=== PATIENT | male | born 1990 | race Asian ===

== ENCOUNTER 2025-07-18 08:43 | Emergency (ER) | payer BC ==
[~2025-07-18] VITALS: Ht 177.8 cm; Wt 84.4 kg
[2025-07-18] MEDS ORDERED: ONDANSETRON HCL/PF 4 MG/2 ML VIAL ONE (09:12)
[2025-07-18] MEDS ORDERED: FAMOTIDINE/PF INJ 20 MG/2 ML VIAL IV ONE (09:12)
[2025-07-18] MEDS ORDERED: PANTOPRAZOLE 40 MG VIAL ONE (09:12)
[2025-07-18 09:14] LABS: PLATELET COUNT (AUTO) 237 K/uL (150-450); RED BLOOD CELL COUNT(AUTO) 6.15 MIL/uL (4.5-6.0); RED CELL DISTRIBUTION WIDTH 14.6 % (11.5-15.0); WHITE BLOOD COUNT (AUTO) 7.1 K/uL (4.3-11.0)
[2025-07-18] MEDS: FAMOTIDINE/PF INJ 20 MG/2 ML VIAL IV ONE (09:18)
[2025-07-18] MEDS: IV NS 0.9% 1,000 ML BAG IV ONE (09:18)
[2025-07-18] MEDS: PANTOPRAZOLE 40 MG VIAL IV ONE (09:19)
[2025-07-18] MEDS: ONDANSETRON HCL/PF - ER 4 MG/2 ML VIAL IV ONE (09:20)
[2025-07-18] MEDS: SUCRALFATE 1 G TABLET PO ONE (09:25)
[2025-07-18 09:30] LABS: ASPARTATE AMINOTRANSFERASE 33.0 U/L (15-37); CALCIUM, SERUM 9.8 mg/dL (8.5-10.1); CREATININE 1.1 mg/dL (0.6-1.3); SODIUM SERUM 142.0 mmol/L (136-145); TOTAL PROTEIN, SERUM 8.5 g/dL (6.4-8.2); UREA NITROGEN, BLOOD 14.0 mg/dL (7-18)
[2025-07-18] MEDS ORDERED: SUCR1TAB31 PO (10:00)
[2025-07-18] MEDS ORDERED: PANT40TA49 PO (10:00)
[2025-07-18] MEDS ORDERED: METO-295 PO (10:00)
[2025-07-18 10:56] VITALS: BP 122/79; TEMP 98.4; O2SAT 99
== END 2025-07-18 10:56 | disposition home or self-care (01) ==
LOC: ER 09:01
DX: R11.2 Nausea with vomiting, unspecified (principal); T50.905A Adverse effect of unspecified drugs, medicaments and biological substances, initial encounter; R10.13 Epigastric pain; E66.9 Obesity, unspecified
CPT/HCPCS: 99284; 96374; 96375; 96361; 85025; 83690; 36415; 80053; J1308; J2405 ×2; J7030; J2470